=== PATIENT | male | born 1960 | race Caucasian/White ===

== ENCOUNTER 2016-05-28 15:18 | Emergency (ER) | payer MEDICARE ==
[~2016-05-28] VITALS: Ht 185.4 cm; Wt 104.3 kg
[~2016-05-28 15:18] MED LIST: SULF1TAB23 PO
--- NOTE | 2016-05-28 16:20 | ED.ADGEN ---
Past History Past Medical History: COPD, CVA, Other Past Surgical History: Other Smoking: Quit Greater Than 1 Year Alcohol Use: None Drug Use: Marijuana Adult General Chief Complaint Chief Complaint ".. I am coughing up blood..." HPI HPI Patient is a 55 year old male who presents with above history and complaints of hemoptysis. History of meth use, aortic valve repair, Coumadin use, and patient has not smoke tobacco in the past year. Patient has smoked marijuana .Patient denies any recent methamphetamine, use patient denies any chest trauma. Patient does advise he did hit his head a few days ago .Patient denies any noncompliance with his Coumadin. Patient has been coughing up specks of blood. No recent travel. No history of immune deficiencies. No specific exposures ill contacts. Does state he's had some episodes of fever. Review of Systems Review of Systems Constitutional: History of episodic fevers Eyes: Denies change in visual acuity, redness, or eye pain [] HENT: Denies nasal congestion or sore throat [] Respiratory: History of hemoptysis and wheezing Cardiovascular: No additional information not addressed in HPI [] GI: Denies abdominal pain, nausea, vomiting, bloody stools or diarrhea [] : Denies dysuria or hematuria [] Musculoskeletal: Denies back pain or joint pain [] Integument: Denies rash or skin lesions [] Neurologic: Denies headache, focal weakness or sensory changes [] Endocrine: Denies polyuria or polydipsia [] Family History Family History Noncontributory Current Medications Current Medications Current Medications Medications (Trade) Dose Ordered Sig/Coni Start Time Stop Time Status Last Admin Dose Admin Albuterol/ Ipratropium (Duoneb) 3 ml 1X ONCE 05/28/16 16:45 05/28/16 16:46 DC 05/28/16 16:45 3 ML Azithromycin (Zithromax) 500 mg 1X ONCE 05/28/16 16:45 05/28/16 16:46 DC 05/28/16 17:14 500 MG Ceftriaxone Sodium (Rocephin Im) 1 gm 1X ONCE 05/28/16 18:45 05/28/16 18:46 DC 05/28/16 18:45 1 GM Diphenhydramine HCl (Benadryl) 50 mg 1X ONCE 05/28/16 16:45 05/28/16 16:46 DC 05/28/16 17:13 50 MG Iohexol (Omnipaque 300 Mg/ml) 75 ml 1X ONCE 05/28/16 16:45 05/28/16 16:46 DC 05/28/16 16:49 75 ML Lactated Ringer's (Iv Lactated Ringers) 1,000 ml @ 1,000 mls/hr Q1H 05/28/16 16:45 05/28/16 20:23 DC 05/28/16 17:15 1,000 MLS/HR Methylprednisolone Sodium Succinate (Solu-Medrol 125mg Vial) 125 mg 1X ONCE 05/28/16 16:45 05/28/16 16:46 DC 05/28/16 17:13 125 MG Allergies Allergies Allergies Coded Allergies Type Severity Reaction Last Updated Verified No Known Drug Allergies 04/22/14 No Physical Exam Physical Exam Constitutional: Mild distress, non-toxic appearance. Large Fu-man savage medina. HENT: Normocephalic, atraumatic, bilateral external ears normal, oropharynx moist, no oral exudates, nose normal. [] Eyes: PERRLA, EOMI, conjunctiva normal, no discharge. Glasses Neck: Normal range of motion, no tenderness, supple, no stridor. [] Cardiovascular: Bradycardia Heart rate regular rhythm, aortic murmur [] Lungs & Thorax: Bilateral breath sounds equal at apexes with scattered wheezes and rhonchi in bases on auscultation [] some increased rhonchi left lower posterior snow. Old surgical scars Abdomen: Bowel sounds normal, soft, no tenderness, no masses, no pulsatile masses. [] Skin: Warm, dry, no erythema, no rash. [] Back: No tenderness, no CVA tenderness. [] Extremities: No tenderness, no cyanosis, no clubbing, ROM intact, no edema. No cording appreciated Neurologic: Alert and oriented X 3, normal motor function, normal sensory function, no focal deficits noted. [] Psychologic: Affect anxious, judgement normal, mood normal. [] Current Patient Data Vital Signs Vital Signs Date Time Temp Pulse Resp B/P Pulse Ox O2 Delivery O2 Flow Rate FiO2 05/28/16 19:00 55 20 122/73 94 Room Air 05/28/16 15:18 98.0 Lab Results Laboratory Tests Test 05/28/16 15:55 05/28/16 18:15 White Blood Count 8.2x10^3/uL (4.0-11.0) Red Blood Count 4.90x10^6/uL (4.30-5.70) Hemoglobin 14.4g/dL (13.0-17.5) Hematocrit 41.8% (39.0-53.0) Mean Corpuscular Volume 85fL (79-100) Mean Corpuscular Hemoglobin 29pg (25-35) Mean Corpuscular Hemoglobin Concent 35g/dL (31-37) Red Cell Distribution Width 13.2% (11.5-14.5) Platelet Count 222x10^3/uL (140-400) Neutrophils (%) (Auto) 69% (31-73) Lymphocytes (%) (Auto) 21% (24-48) L Monocytes (%) (Auto) 9% (0-9) Eosinophils (%) (Auto) 1% (0-3) Basophils (%) (Auto) 1% (0-3) Neutrophils # (Auto) 5.7x10^3uL (1.8-7.7) Lymphocytes # (Auto) 1.7x10^3/uL (1.0-4.8) Monocytes # (Auto) 0.7x10^3/uL (0.0-1.1) Eosinophils # (Auto) 0.1x10^3/uL (0.0-0.7) Basophils # (Auto) 0.1x10^3/uL (0.0-0.2) Prothrombin Time 31.3SEC (9.4-11.4) H Prothrombin Time INR 3.0 (0.9-1.1) H PTT 44SEC (23-33) H D-Dimer (Taylor) < 0.19mg/L (0.00-0.50) Sodium Level 143mmol/L (136-145) Potassium Level 4.1mmol/L (3.5-5.1) Chloride Level 105mmol/L (98-107) Carbon Dioxide Level 29mmol/L (21-32) Anion Gap 9 (6-14) Blood Urea Nitrogen 12mg/dL (8-26) Creatinine 1.2mg/dL (0.7-1.3) Estimated GFR (Cockcroft-Gault) 63.1 Glucose Level 122mg/dL (70-99) H Calcium Level 9.0mg/dL (8.5-10.1) Magnesium Level 1.9mg/dL (1.8-2.4) Total Bilirubin 0.9mg/dL (0.2-1.0) Direct Bilirubin 0.2mg/dL (0.0-0.2) Aspartate Amino Transferase (AST) 15U/L (15-37) Alanine Aminotransferase (ALT) 18U/L (16-63) Alkaline Phosphatase 92U/L (46-116) Creatine Kinase 66U/L (39-308) Creatine Kinase MB (Mass) < 0.5ng/mL (0.0-3.6) Creatine Kinase MB Relative Index 0.8% (0-4) Troponin I Quantitative < 0.017ng/mL (0-0.055) OW-Mjq-N-Type Natriuretic Peptide 147pg/mL (0-124) H Total Protein 7.5g/dL (6.4-8.2) Albumin 4.0g/dL (3.4-5.0) Lipase 163U/L (73-393) Urine Collection Type Unknown Urine Color Yellow Urine Clarity Clear Urine pH 7.5 Urine Specific [place] 1.015 Urine Protein Neg (NEG-TRACE) Urine Glucose (UA) Negmg/dL (NEG) Urine Ketones (Stick) Negmg/dL (NEG) Urine Blood Trace (NEG) Urine Nitrite Neg (NEG) Urine Bilirubin Neg (NEG) Urine Urobilinogen Dipstick 0.2mg/dL (0.2 mg/dL) Urine Leukocyte Esterase Neg (NEG) Urine RBC 1-2/HPF (0-2) Urine WBC 0/HPF (0-4) Urine Squamous Epithelial Cells Few/LPF Urine Bacteria 0/HPF (0-FEW) Urine Opiates Screen Neg (NEG) Urine Methadone Screen Neg (NEG) Urine Barbiturates Neg (NEG) Urine Phencyclidine Screen Neg (NEG) Urine Amphetamine/Methamphetamine Neg (NEG) Urine Benzodiazepines Screen Pos (NEG) Urine Cocaine Screen Neg (NEG) Urine Cannabinoids Screen Pos (NEG) Urine Ethyl Alcohol Neg (NEG) EKG EKG My interpretation EKG shows a sinus bradycardia 51 bpm. There is some anterior septal changes but no findings acute STEMI of contralateral changes. [] Radiology/Procedures Radiology/Procedures My Interpretation chest x-ray shows chronic COPD emphysema type changes. Does have some sternal wires. Appears to have a aortic valve. Appears have some basilar atelectasis or infiltrate particularly on the left . CT of chest shows[]L. Lower Lobe infiltrate, and bibasilar atele. No PE appreciated. See formal report Course & Med Decision Making Course & Med Decision Making Pertinent Labs and Imaging studies reviewed. (See chart for details) Patient follow-up primary care. Patient warned that the use of antibiotics may increase his INR which is currently at 3.0 would hold Coumadin tonight. Discussed with primary care addressed to further dosages of Coumadin. Patient to continue his Zithromax 250 mg day for daily for 5 days. Patient take prednisone 50 mg a day for 5 days. Pt. use Combivent 2 puffs 4 times a day with spacer. Patient encouraged not to smoke marijuana. Patient encouraged follow-up primary care. Patient return if any concerns. Patient may use Benadryl 25-50 mg 4 times a day for cough suppressant. Return if any concerns [] Final Impression Final Impression 1. Left lower lobe pneumonia [] 2. Marijuana use 3. History of COPD 4. History of aortic valve repair 5. Therapeutic INR 6. Complaints of Hemoptysis Problems: Dragon Disclaimer Dragon Disclaimer This electronic medical record was generated, in whole or in part, using a voice recognition dictation system. MAGNO CARDOZA MD May 28, 2016 16:20
[2016-05-28 16:34] LABS: BASO # 0.1 x10^3/uL (0.0-0.2); BASO % 1 % (0-3); EOS # 0.1 x10^3/uL (0.0-0.7); EOS % 1 % (0-3); HEMATOCRIT 41.8 % (39.0-53.0); HEMOGLOBIN 14.4 g/dL (13.0-17.5); LYMPH # 1.7 x10^3/uL (1.0-4.8); LYMPH % 21 % (24-48); MEAN CORPUSCULAR HEMOGLOBIN 29 pg (25-35); MEAN CORPUSCULAR HGB CONC 35 g/dL (31-37); MEAN CORPUSCULAR VOLUME 85 fL (79-100); MONO # 0.7 x10^3/uL (0.0-1.1); MONO % 9 % (0-9); NEUT # 5.7 x10^3uL (1.8-7.7); NEUT % 69 % (31-73); PLATELET COUNT 222 x10^3/uL (140-400); RED CELL DISTRIBUTION WIDTH 13.2 % (11.5-14.5); WHITE BLOOD COUNT 8.2 x10^3/uL (4.0-11.0)
--- NOTE | 2016-05-28 16:38 | EKG ---
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
[2016-05-28] MEDS ORDERED: methylPREDNISolone SOD SUCC PF 125 MG/2 ML VIAL. IV ONE (16:45)
[2016-05-28] MEDS ORDERED: IPRATRPIUM/ALBUTEROL 0.5/2.5MG 3 ML NEBU. NEB ONE (16:45)
[2016-05-28] MEDS ORDERED: IV RINGERS SOLUTION,LACTATED 1,000 ML IV SCH (16:45)
[2016-05-28] MEDS ORDERED: IOHEXOL 300 MG/ML 75 ML VIAL. IV ONE (16:45)
[2016-05-28] MEDS ORDERED: DIPHENHYDRAMINE 50 MG/ML VIAL IVP ONE (16:45)
[2016-05-28] MEDS ORDERED: AZITHROMYCIN 250 MG TABLET. PO ONE (16:45)
[2016-05-28 16:53] LABS: ALK PHOS 92 U/L (46-116); ALT (SGPT) 18 U/L (16-63); ANION GAP 9 (6-14); AST (SGOT) 15 U/L (15-37); BLOOD UREA NITROGEN 12 mg/dL (8-26); CARBON DIOXIDE 29 mmol/L (21-32); CHLORIDE 105 mmol/L (98-107); CREATINE KINASE 66 U/L (39-308); CREATININE 1.2 mg/dL (0.7-1.3); DIRECT BILIRUBIN 0.2 mg/dL (0.0-0.2); GFR 63.1; GLUCOSE 122 mg/dL (70-99); LIPASE 163 U/L (73-393); MAGNESIUM 1.9 mg/dL (1.8-2.4); POTASSIUM 4.1 mmol/L (3.5-5.1); SODIUM 143 mmol/L (136-145); TOTAL BILIRUBIN 0.9 mg/dL (0.2-1.0); TOTAL PROTEIN 7.5 g/dL (6.4-8.2)
--- NOTE | 2016-05-28 17:14 | RAD ---
PROCEDURE CT angiogram chest HISTORY Hemoptysis, short of air today. TECHNIQUE Axial images and coronal and sagittal re-formatted images are provided. Coronal maximum intensity projection re-formatted images are provided. 75 milliliters of intravenous Omnipaque 300 was administered without complication. One or more of the following individualized dose reduction techniques were utilized for this exam: 1. Automated exposure control. 2. Adjustment of the mA and/or kV according to patient's size. 3. Use of iterative reconstruction technique. COMPARISON None provided. FINDINGS Contrast bolus is satisfactory. There is no filling defect to suggest pulmonary embolism. There is minimal atheromatous disease in the thoracic aorta. The heart is not enlarged. There are coronary artery calcifications. There are median sternotomy wires and findings of aortic valve repair. There are sub centimeter mediastinal lymph nodes, short axis, which may be reactive. Central airways are patent. Ground-glass opacities which are nodular are noted in the right upper lobe. Consolidation in the left lower lobe is noted. Dependent atelectasis or scarring is noted. There are calcified granulomas. There is no pleural effusion. There are degenerative changes in the spine. IMPRESSION 1. Negative for pulmonary embolism. 2. Left lower lobe consolidation, likely pneumonia. Right upper lobe ground-glass nodules may be inflammatory. Both findings can be re-evaluated in 3 months to document stability. Electronically signed by: Cory Lawrence MD (May 28, 2016 17:13:10)
--- NOTE | 2016-05-28 18:22 | RAD ---
PROCEDURE CT head without contrast. HISTORY Recent head trauma. Headache today. Previous strokes. TECHNIQUE Noncontrast CT head was obtained. There is contrast on board from the CT angiogram chest recently performed, limits evaluation. COMPARISON April 22, 2014. FINDINGS The ventricles and sulci are within normal limits for age. Right frontal infarct is stable. There is no CT evidence of an acute infarct. There is no mass effect or midline shift. Ibarra-white differentiation is maintained. Evaluation for subtle hemorrhage is limited given IV contrast already administered in this patient. No gross intracranial hemorrhage is apparent. There is no extra-axial fluid collection. There is no depressed skull fracture. Paranasal sinuses and mastoid air cells are clear. IMPRESSION 1. Old right frontal infarct. 2. No acute intracranial findings. Electronically signed by: Cory Lawrence MD (May 28, 2016 18:20:26)
[2016-05-28] MEDS ORDERED: PRED50TA PO (18:44)
[2016-05-28] MEDS ORDERED: CEFTRIAXONE IM 1 GM VIAL. IM ONE (18:45)
[2016-05-28] MEDS ORDERED: AZIT250T PO (18:45)
[2016-05-28] MEDS ORDERED: IPRA4AER INH (18:46)
[2016-05-28 18:58] LABS: AMPHETAMINE/METHAMPHETAMINE NEG (NEG); BARBITURATES NEG (NEG); BENZODIAZEPINES POS (NEG); CANNABINOIDS POS (NEG); COCAINE NEG (NEG); METHADONE NEG (NEG); OPIATES NEG (NEG); PHENCYCLIDINE NEG (NEG)
[2016-05-28 19:00] VITALS: BP 122/73
[2016-05-28 19:12] LABS: BILIRUBIN,URINE NEG (NEG); CLARITY,URINE CLEAR; COLOR,URINE YELLOW; GLUCOSE,URINE NEG (NEG); NITRITE,URINE NEG (NEG); UROBILINOGEN,URINE 0.2 mg/dL (0.2 mg/dL)
[2016-05-28 19:13] LABS: BACTERIA,URINE 0 /HPF (0-FEW); SQUAMOUS EPITHELIAL CELL,UR FEW /LPF; WBC,URINE 0 /HPF (0-4)
--- NOTE | 2016-05-29 08:28 | RAD ---
Indication coughing up blood. Shortness of air. PA and lateral views of the chest were obtained. Comparison is made to an examination 04/22/2014. Postoperative changes are noted. A prosthetic aortic valve is noted. There is no gross congestive heart failure. There is a suggested minimal patchy infiltrate in the left lower lobe. Significant pleural fluid is not present. There is no pneumothorax. IMPRESSION: Suspect minimal patchy infiltrate in the left lower lobe. Findings may reflect pneumonia.
== END 2016-05-28 19:33 | disposition home or self-care (01) ==
LOC: ER 15:18
DX: J18.9 Pneumonia, unspecified organism (principal); R04.2 Hemoptysis; J44.9 Chronic obstructive pulmonary disease, unspecified; F12.10 Cannabis abuse, uncomplicated; R51 Headache; R79.1 Abnormal coagulation profile; F15.10 Other stimulant abuse, uncomplicated; Z86.73 Personal history of transient ischemic attack (TIA), and cerebral infarction without residual deficits; Z87.891 Personal history of nicotine dependence; Z95.2 Presence of prosthetic heart valve; Z79.01 Long term (current) use of anticoagulants
CPT/HCPCS: 36415; 70450; 71020; 71275; 80048; 80076; 80305; 81001; 82553; 83690; 83735; 83880; 84443; 84484; 85027; 85379; 85610; 85730; 87040; 93005; 94640; 96361; 96372; 96374; 96375; 99285; J0456; J0696; J1200; J2930; J7120; J7620; Q9967; G0481

== ENCOUNTER → 2016-06-05 | Outpatient (CLI) | payer MEDICARE ==
[2016-05-28 19:00] VITALS: BP 122/73
[~2016-06-05] MED LIST changes: +AZIT250T PO; +IPRA4AER INH; +PRED50TA PO
--- NOTE | 2016-06-05 12:29 | RAD ---
EXAM: Chest, 2 views. HISTORY: Pneumonia. COMPARISON: 05/28/2016. FINDINGS: Frontal and lateral views the chest are obtained. There is no infiltrate, effusion or pneumothorax. The heart is normal in size. There are findings consistent with median sternotomy and cardiac valve surgery.. IMPRESSION: No acute pulmonary finding.
== END | disposition home or self-care (01) ==
LOC: DXRADRC 12:13
PROVIDERS: ATTEND Physician Assistant
DX: Z87.01 Personal history of pneumonia (recurrent) (principal)
CPT/HCPCS: 71020

== ENCOUNTER 2016-06-30 22:37 | Inpatient (IN) | payer MEDICARE ==
[~2016-06-30] VITALS: Ht 185.4 cm; Wt 100.7 kg
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
[2016-06-30] MEDS ORDERED: IV RINGERS SOLUTION,LACTATED 1,000 ML IV SCH (22:45)
[2016-06-30] MEDS ORDERED: LORAZEPAM 2 MG/ML VIAL IV ONE ×2 (22:45→23:15)
[2016-06-30 23:07] LABS: BASO % 0 % (0-3); EOS # 0.1 x10^3/uL (0.0-0.7); EOS % 1 % (0-3); HEMOGLOBIN 14.5 g/dL (13.0-17.5); LYMPH # 1.9 x10^3/uL (1.0-4.8); LYMPH % 24 % (24-48); MEAN CORPUSCULAR HEMOGLOBIN 29 pg (25-35); MEAN CORPUSCULAR HGB CONC 33 g/dL (31-37); MEAN CORPUSCULAR VOLUME 87 fL (79-100); MONO # 0.5 x10^3/uL (0.0-1.1); MONO % 7 % (0-9); NEUT # 5.1 x10^3uL (1.8-7.7); NEUT % 67 % (31-73); PLATELET COUNT 265 x10^3/uL (140-400); RED BLOOD COUNT 5.06 x10^6/uL (4.30-5.70); RED CELL DISTRIBUTION WIDTH 13.3 % (11.5-14.5); WHITE BLOOD COUNT 7.7 x10^3/uL (4.0-11.0)
--- NOTE | 2016-06-30 23:22 | RAD ---
PROCEDURE CT head without contrast 06/30/2016. HISTORY Seizure. History of CVA. TECHNIQUE Noncontrast images were obtained. Exposure: One or more of the following individualized dose reduction techniques were utilized for this exam: 1. Automated exposure control. 2. Adjustment of the mA and/or kV according to patient size. 3. Use of iterative reconstruction technique. COMPARISON 05/28/2016. FINDINGS There is no apparent intracranial mass, hemorrhage or abnormal extra-axial fluid collection. An area of low density is again seen in the right frontal lobe and is consistent with a previous infarct. No new area of abnormal density is identified. The ventricles and basilar cisterns are normally positioned. The sinuses and mastoid air cells appear clear. IMPRESSION No apparent acute abnormality. Electronically signed by: Pato Riggins (Jun 30, 2016 23:21:12)
[2016-06-30 23:45] LABS: ALBUMIN 4.1 g/dL (3.4-5.0); CREATININE 1.2 mg/dL (0.7-1.3); DIRECT BILIRUBIN 0.2 mg/dL (0.0-0.2); GFR 62.9; POTASSIUM 4.1 mmol/L (3.5-5.1); TOTAL BILIRUBIN 0.8 mg/dL (0.2-1.0); TOTAL PROTEIN 7.6 g/dL (6.4-8.2)
[2016-06-30 23:53] LABS: BARBITURATES NEG (NEG); BENZODIAZEPINES POS (NEG); CANNABINOIDS POS (NEG); COCAINE NEG (NEG); METHADONE NEG (NEG); OPIATES NEG (NEG); PHENCYCLIDINE NEG (NEG)
[2016-06-30 23:55] LABS: AMPHETAMINE/METHAMPHETAMINE POS (NEG)
[2016-06-30 23:59] LABS: BILIRUBIN,URINE NEG (NEG); CLARITY,URINE CLEAR; COLOR,URINE YELLOW; GLUCOSE,URINE NEG (NEG); NITRITE,URINE NEG (NEG); RBC,URINE OCC /HPF (0-2); UROBILINOGEN,URINE 0.2 mg/dL (0.2 mg/dL); WBC,URINE OCC /HPF (0-4)
[2016-07-01] LABS: BACTERIA,URINE FEW /HPF (0-FEW); SQUAMOUS EPITHELIAL CELL,UR OCC /LPF
[2016-07-01] MEDS ORDERED: IV RINGERS SOLUTION,LACTATED 1,000 ML IV ONE (00:12)
[2016-07-01] MEDS ORDERED: IOHEXOL 300 MG/ML 75 ML VIAL. IV ONE (00:15)
--- NOTE | 2016-07-01 00:42 | ACF ---
Admission Criteria Forms SEIZURE Clinical Indications for Admission to Inpatient Care (Place 'X' for any and all applicable criteria): Admission is indicated for seizure and ANY ONE of the following(1)(2)(3)(4)(5): [X]I. Inpatient admission required rather than observation care (Also use Seizure: Observation Care Criteria as appropriate) because of ANY ONE of the following: [ ]a) Altered mental status that is severe or persistent [ ]b) New focal neurologic deficit that is severe or persistent [ ]c) Metabolic disorder (eg, hypoglycemia, hyponatremia) that is severe or persistent [ ]d) Recurrent seizure [ ]e) Outpatient antiseizure regimen cannot be established (eg , patient cannot tolerate medication, initiation requires inpatient care) [X]f) Need for ongoing intravenous infusion of antiseizure medication [ ]g) Cardiac arrhythmias of immediate concern [ ]h) Cerebral bleeding, hydrocephalus, or vasospasm monitoring (14) [ ]i) Increased intracranial pressure or cerebral edema monitoring (15) [ ]j) Other treatment or monitoring requiring inpatient admission [ ]II. Status epilepticus [A] or repetitive seizures not controlled with emergent treatment (6)(8) [ ]III. Brain disorder (eg, tumor, edema, and hydrocephalus) that requiring monitoring or intervention available only at inpatient level of care. [ ]IV. Brain insult (eg, severe trauma, stroke, drug toxicity, or withdrawal) that requires monitoring or intervention available only at inpatient level of care (10)(11) Extended stay beyond goal length of stay may be needed for (22) [ ]a) Complications of status epilepticus [ ]b) Refractory status epilepticus [ ]c) Etiology-specific therapy for conditions such as HOMEWORKER infection, head injury,eclampsia, severe metabolic abnormalities, and brain tumor [ ]d) Residual neurologic damage, [ ]e) Initiation of significant change to anticonvulsant treatment [ ]f) Older patients (65 years or older) [ ]g) Patient requiring intubation (eg, to protect airway) The original [employer] content created by [employer] has been revised. The portions of the content which have been revised are identified through the use of italic text or in bold, and [facility] [employer] has neither reviewed nor approved the modified material. All other unmodified content is copyright [facility] [employer]. Please see references footnoted in the original [facility] edition 2016 Admission Criteria Met?: Yes SHEA MÉNDEZ Jul 01, 2016 00:42
--- NOTE | 2016-07-01 00:52 | RAD ---
PROCEDURE CTA chest with contrast 07/01/2016. HISTORY Dyspnea and syncope. TECHNIQUE Helical thin-section images were made through the chest using an infusion of 75 milliliters Omnipaque 300. MIP reconstructions also were performed. Exposure: One or more of the following individualized dose reduction techniques were utilized for this exam: 1. Automated exposure control. 2. Adjustment of the mA and/or kV according to patient size. 3. Use of iterative reconstruction technique. COMPARISON 05/28/2016. FINDINGS Areas of atelectasis are seen posteriorly in both lungs. Patchy infiltrate is visible in the right upper lobe. The left lower lobe has cleared some since the prior exam, and small areas of infiltrate in the right upper lobe have resolved, while the current abnormality appears to be new. No other significant pulmonary parenchymal abnormality is seen. The central airways show no obstruction. No enlarged lymph nodes are seen. 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 Evaluation of the pulmonary arterial tree shows only modest opacification of the pulmonary artery branches, despite apparent appropriate technique. No abnormal filling defect is seen extending out at least to the segmental branch level. Images through the upper abdomen show no new abnormality. IMPRESSION No PE, although pulmonary artery opacification was only modest on today's exam. Fluctuating infiltrates, although overall, there has been improvement since the prior study. Electronically signed by: Pato Riggins (Jul 01, 2016 00:50:49)
[2016-07-01] MEDS ORDERED: ONDANSETRON PF 4 MG/2 ML VIAL. IV PRN (01:45)
[2016-07-01] MEDS ORDERED: LORAZEPAM 2 MG/ML VIAL IV PRN (01:45)
[2016-07-01 02:56] VITALS: BP 124/74
[2016-07-01] MEDS: LEVETIRACETAM 1,000 MG in IV NORMAL SALINE 100ML 100 ML IV SCH ×2 (03:00→09:21)
[2016-07-01] MEDS ORDERED: IV NORMAL SALINE 100ML 100 ML ONE (03:16)
[2016-07-01] MEDS ORDERED: LEVETIRACETAM 500 MG/5 ML VIAL IV ONE (03:16)
--- NOTE | 2016-07-01 05:13 | EKG ---
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
[2016-07-01 05:50] VITALS: BP 104/65
[2016-07-01] MEDS ORDERED: DEXL60CA PO (07:09)
[2016-07-01] MEDS ORDERED: HYDR25TA PO (07:09)
[2016-07-01] MEDS ORDERED: DESVENLAFAX (07:09)
[2016-07-01] MEDS ORDERED: LISI-338 PO (07:09)
[2016-07-01] MEDS ORDERED: WARF5TAB7 PO ×2 (07:09→17:11)
[2016-07-01] MEDS ORDERED: WARF2TAB7 (07:09)
--- NOTE | 2016-07-01 09:27 | RAD ---
AP portable chest radiograph 06/30/2016 Clinical History: Unexplained seizure. An AP portable erect digital radiograph of the chest was obtained. Comparison study is dated 06/05/2016. The patient is status post cardiac valve replacement. The cardiac silhouette is normal in size. The thoracic aorta is minimally tortuous. Left lower lobe atelectasis and/or infiltrate is seen which is new since the previous examination. No pneumothorax or pleural effusion is noted. The osseous structures are unchanged. Impression: Left lower lobe atelectasis and/or infiltrate.
[2016-07-01] MEDS ORDERED: HYDROXYZINE HCL 25 MG TABLET PO PRN (09:45)
[2016-07-01 10:40] VITALS: BP 113/69
[2016-07-01] MEDS: PANTOPRAZOLE 40 MG TABLET. PO SCH (11:58)
[2016-07-01] MEDS: LISINOPRIL 5 MG TABLET. PO SCH (11:58)
[2016-07-01] MEDS: IPRATRPIUM/ALBUTEROL 0.5/2.5MG 3 ML NEBU. NEB SCH ×3 (12:21→20:00)
--- NOTE | 2016-07-01 12:51 | HP ---
ADMIT DATE: 07/01/2016 REASON FOR ADMISSION: Tonic-clonic seizure. HISTORY OF PRESENT ILLNESS: This is a 56-year-old gentleman who was [place] on [address]. He admits to taking some brownies with unknown substance in it. He also took an Adderall, which did not belong to him. He "felt something coming on" and then had witnessed tonic-clonic seizure. At the scene, he was prolonged postictal. He did receive Versed by the paramedics for repeated tonic-clonic seizures during transport to the ED. He is a daily marijuana user and does use methamphetamine as well. PAST MEDICAL HISTORY: COPD. He has had 3 strokes. He has a mechanical aortic valve, requiring Coumadin, long-term use of anticoagulants, tobacco use disorder, however, states he has quit. 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 He is disabled. He was a heavy smoker and does admit to daily marijuana use, intermittent methamphetamine use. MEDICATIONS: Reviewed. The patient does not currently take prednisone, although it is listed. He is on Coumadin and other medicines are available on MAY. ALLERGIES: None. REVIEW OF SYSTEMS: The patient feels a little sleepy, otherwise really does not have any particular complaints. OBJECTIVE: VITAL SIGNS: Blood pressure 113/69, temperature 97.6, pulse 64, respirations 20, pulse ox 95% on room air. GENERAL: A 56-year-old in no acute distress. HEENT: Hearing is normal. Eyes are clear. Pupils are equal, round, reactive to light. Extraocular muscles are intact. Nose is patent. Throat is clear. NECK: Supple, without adenopathy. LUNGS: Clear to auscultation. CARDIOVASCULAR: Regular rhythm and rate with a crisp aortic valve sound. ABDOMEN: Soft, nontender. EXTREMITIES: Without edema. NEUROLOGIC: He is intact. His reflexes are brisk, I would say 3+/4. No neurological deficits were noted and follow directions without difficulty. LABORATORY DATA: Normal CBC. Normal CMP. Drug screen positive for cannabinoids, amphetamines and benzos, which he may have already gotten in the ER. Urinalysis was negative. His INR was 3.4, so that is acceptable. ASSESSMENT: 1. New onset tonic-clonic seizure, questionable etiology from drug use of Adderall and brownies with unknown substance in it. 2. History of methamphetamine use. 3. Daily marijuana use. 4. Tobacco use disorder, has quit. 5. Chronic obstructive pulmonary disease. 6. Cerebrovascular accident x 3. 7. History of pneumonia. 8. Long-term use of anticoagulants. PLAN: The patient received IV Keppra and we will wait for Dr. Dotson. TONEY PATEL DO DR: JOE/jack JOB#: [id number] / [id number]
[2016-07-01] MEDS ORDERED: NON FORMULARY ITEM (Ipratropium/Albuterol Sulfate (Combivent Respimat Inhal) 2 PUFF) INH SCH (13:00)
[2016-07-01 15:14] VITALS: BP 107/69
[2016-07-01] MEDS ORDERED: WARFARIN 5 MG TABLET. PO SCH (16:00)
[2016-07-01] MEDS ORDERED: WARFARIN 2 MG TABLET. PO SCH (16:00)
[2016-07-01 18:58] VITALS: BP 104/60
[2016-07-01] MEDS: LEVETIRACETAM 500 MG TABLET PO SCH (21:07)
--- NOTE | 2016-07-01 23:05 | CONS ---
DATE OF CONSULTATION: 07/01/2016 NEUROLOGY CONSULT REFERRING PHYSICIAN: Dr. Atkins. REASON FOR CONSULTATION: New onset of seizure. HISTORY OF PRESENT ILLNESS: This is a 56-year-old disabled male who was admitted to Emergency Room last night after he presented with a new onset of seizure described by paramedics as generalized tonic clonic seizures. The ER report stated that the patient did have 2 witnessed generalized tonic-clonic seizures witnessed by paramedics. The seizures followed by prolonged postictal confusions. The patient did not recall the event. He did not have any tongue biting, bowel, or bladder incontinence. The patient denies any head injuries or falls. Apparently, he [place] when he was sitting and then all of a sudden, he felt strange in his body and then he lost consciousness. According to the patient, he was eating a brownie with unknown substance in it. He was also given a pill of Adderall. The patient is supposed to abuse amphetamine for several years along with smoking marijuana on daily basis. In the Emergency Room, the patient was in postictal status. He was given Keppra IV 1000 mg. Since admission, he has not had any recurrent seizures. The patient denies any other complaints; however, he stated he has been slow "since 2004 after he had 3 strokes in the same year, which did not result any focal neurological deficit, but affecting his mental status and higher cognition function. Initial nonenhanced head CT scan revealed no acute intracranial process. PAST MEDICAL HISTORY: Significant for history of stroke x 3 as described above, aortic valve replacement in 2004. SOCIAL HISTORY: The patient is single. He smokes tobacco and marijuana. He denies alcohol drinking, but he has been abusing amphetamine. 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 FAMILY HISTORY: Noncontributory. CURRENT MEDICATIONS: Warfarin 5 mg alternating with 2 mg, lisinopril 5 mg daily, Protonix 40 mg daily, Atarax 25 mg q. 6 hours p.r.n. for agitation, albuterol inhaler, levothyroxine q. 12 hours, lorazepam 2 mg p.r.n. and Zofran 4 mg q. 4 hours p.r.n. IV. ALLERGIES: No known drug allergies. REVIEW OF SYSTEMS: A 10-point review of systems was performed and consistent with history of present illness. However, the patient denies any chest pain, palpitations, or any other new medical or neurological complaints. OBJECTIVE: GENERAL APPEARANCE: Obese white male, not in acute distress. He weighs 230 pounds. VITAL SIGNS: Blood pressure 113/69, respiratory rate 20, pulse is 64, temperature 97.6, oxygen saturation 95% on room air. HEENT: Normocephalic, atraumatic, otherwise unremarkable. NECK: Supple. Negative for carotid bruit, lymphadenopathy, JVD, or thyromegaly. LUNGS: Clear, but he has diminished breath sounds bilaterally. CARDIOVASCULAR: Regular rate and rhythm, normal S1, S2. There is 2/6 systolic murmur. ABDOMEN: Soft. Bowel sounds positive. EXTREMITIES: Negative for cyanosis, clubbing, or pitting edema. NEUROLOGICAL: 1. MENTAL STATUS: The patient is alert and oriented x 3. The speech is fluent. There is no language dysfunction. Memory, judgment, and abstract thinking are fair. The patient denies hallucination or delusion. 2. CRANIAL NERVES: Visual snow are full. The pupils are reactive to light and accommodation. The extraocular movements are intact. There is no nystagmus. There is no facial motor or sensory deficit. Hearing is intact bilaterally. The palate is elevated symmetrically. Sternocleidomastoid muscles are powerful bilaterally. The patient shrugs his shoulders symmetrically and protrudes his tongue in the midline without fasciculation or atrophy. 3. MOTOR EXAMINATION: No focal muscle bulk was seen. The tone is normal. The strength is 5/5 throughout. Sensory examination revealed normal pinprick, light touch, vibratory and position senses. Deep tendon reflexes are symmetric and active without pathologic responses. Gait: The stance is steady. The patient has normal cazeqm-tg-jwgx and vevv-hd-molu rapid alternative movements and rapid repetitive movements. LABORATORY DATA: CBC revealed white blood cells of 7.7 thousand, hemoglobin 14.5, hematocrit 44, platelet count 265,000. Chemistry revealed sodium 139, potassium 4.1, chloride 101, CO2 29. BUN is 16, creatinine 1.2, glucose 145, calcium 9, magnesium 2. Liver enzymes reveal low AST and ALT and troponin level less than 0.017. TSH is normal at 0.621. Urinalysis negative for urinary tract infections. Urine drug screen is positive for amphetamine, benzodiazepine, marijuana. IMPRESSION: 1. New onset of generalized tonic-clonic seizure - grand mal, etiology uncertain, rule out central nervous system pathology versus substance abuse withdrawal. 2. Multiple medical problems include status post aortic valve replacement, substance abuse, chronic obstructive pulmonary disease, history of stroke. RECOMMENDATIONS: 1. The patient probably is not a candidate for brain MRI. 2. Electroencephalogram. 3. Keppra 500 mg b.i.d. 4. Continue with current management initiated by Dr. Atkins. M Roni CLINTON MD DR: STUART/jack JOB#: [id number] / [id number]
[2016-07-02 04:54] VITALS: BP 97/59
[2016-07-02] MEDS: IPRATRPIUM/ALBUTEROL 0.5/2.5MG 3 ML NEBU. NEB SCH ×4 (05:13→19:57)
[2016-07-02 07:08] LABS: BASO % 0 % (0-3); EOS # 0.1 x10^3/uL (0.0-0.7); EOS % 2 % (0-3); HEMATOCRIT 42.5 % (39.0-53.0); LYMPH # 1.9 x10^3/uL (1.0-4.8); LYMPH % 37 % (24-48); MEAN CORPUSCULAR HEMOGLOBIN 29 pg (25-35); MEAN CORPUSCULAR HGB CONC 33 g/dL (31-37); MEAN CORPUSCULAR VOLUME 87 fL (79-100); MONO # 0.4 x10^3/uL (0.0-1.1); MONO % 8 % (0-9); NEUT # 2.8 x10^3uL (1.8-7.7); NEUT % 53 % (31-73); PLATELET COUNT 170 x10^3/uL (140-400); RED BLOOD COUNT 4.88 x10^6/uL (4.30-5.70); RED CELL DISTRIBUTION WIDTH 13.7 % (11.5-14.5); WHITE BLOOD COUNT 5.2 x10^3/uL (4.0-11.0)
[2016-07-02 07:21] LABS: ALBUMIN 3.5 g/dL (3.4-5.0); ALBUMIN/GLOBULIN RATIO 1.2 (1.0-1.7); CALCIUM 8.6 mg/dL (8.5-10.1); GFR 77.6; POTASSIUM 3.9 mmol/L (3.5-5.1); TOTAL BILIRUBIN 0.5 mg/dL (0.2-1.0); TOTAL PROTEIN 6.5 g/dL (6.4-8.2)
[2016-07-02 08:18] VITALS: BP 127/83
[2016-07-02] MEDS: LISINOPRIL 5 MG TABLET. PO SCH (10:04)
[2016-07-02] MEDS: LEVETIRACETAM 500 MG TABLET PO SCH ×2 (10:04→20:11)
[2016-07-02] MEDS: PANTOPRAZOLE 40 MG TABLET. PO SCH (10:04)
[2016-07-02 10:56] VITALS: BP 124/80
--- NOTE | 2016-07-02 11:42 | PN ---
DATE: 07/02/2016 SUBJECTIVE: The patient denies any new medical neurological complaints. He has not had any seizures since admission. OBJECTIVE: GENERAL: Well-developed, well-nourished white male, not in acute distress. VITAL SIGNS: Blood pressure 127/83, respiratory rate 20, pulse is 77 and regular, temperature 97.7, oxygen saturation 95% on room air. HEENT: Normocephalic, atraumatic, otherwise unremarkable. NECK: Supple. Negative for carotid bruit, lymphadenopathy or thyromegaly. LUNGS: Clear to A and P. CARDIOVASCULAR: Regular rate and rhythm, normal S1, S2. There is no S3, S4 or murmur. ABDOMEN: Soft. Bowel sounds positive. EXTREMITIES: Negative for cyanosis, clubbing or pitting edema. NEUROLOGICAL EXAM: Mental Status: The patient is alert and oriented x 3. Speech is fluent. There is no language dysfunction. Memory is intact. Judgment and abstract thinking are normal. Cranial nerves are intact. Motor Examination: No focal muscle bulk was seen. The tone is normal. The strength is 5/5 throughout. Sensory examination revealed normal pinprick, light touch over vibratory and position senses. Deep tendon reflexes are symmetric and active without pathology responses. Gait and coordination is normal. LABORATORY DATA: CBC revealed white blood cells of 5.2 thousand, hemoglobin 14, hematocrit 42.5, platelet count 178,000. Chemistry revealed sodium 143, potassium 3.9, chloride 107, CO2 30, BUN 9, creatinine 1, glucose 129, calcium 8.6. Coagulation: PT is 36.3 and INR 2.6. IMPRESSION: 1. New onset of a seizure, described as generalized tonic-clonic seizures, etiology uncertain, possible substance abuse or withdrawal. 2. Multiple medical problems include post-aortic valve replacement, chronic obstructive pulmonary disease and substance abuse, amphetamine. RECOMMENDATIONS: 1.Continue with current anticonvulsant, Keppra 500 mg b.i.d., and continue with current care initiated by Dr. Atkins. 2.Await for an EEG or electroencephalogram. M Roni CLINTON MD DR: STUART/jack JOB#: [id number] / [id number]
[2016-07-02 15:13] VITALS: BP 118/67
[2016-07-02] MEDS: WARFARIN 10 MG TABLET. PO SCH (16:39)
--- NOTE | 2016-07-02 19:02 | PN ---
DATE: 07/02/2016 SUBJECTIVE: The patient is resting, slightly propped up, sleeping comfortably, is arousable and on questioning him, he denied any complaint. In particular, denied any tingling or numbness, denied any weakness and the nursing staff stated he has no further episodes of tonic-clonic seizures. OBJECTIVE: GENERAL: On examining him, he looked well and was clearly in no apparent respiratory distress. No pallor, jaundice, cyanosis, or thyromegaly. No jugular venous distention. No limb edema. VITAL SIGNS: His heart rate was 61, blood pressure was 124/80, temperature was 97.7, respiratory rate 20 and oxygen saturation was 96% on room air. HEAD, EYES, EARS, NOSE AND THROAT: Showed normocephalic, atraumatic. NECK: Supple. HEART: Showed normal first and second heart sounds. No gallop, rub or murmur. CHEST: Clear to auscultation. No crepitation or rhonchi. ABDOMEN: Distended, soft, nontender. No guarding or rigidity. No organomegaly. All hernial orifices intact. Bowel sounds normal. NEUROLOGIC: He was awake, alert, responding appropriately. Cranial nerves are intact. He moves extremities without difficulty, ambulates without assistance or assistive devices. His intake over the last 24 hours was 940, no output was recorded. LABORATORY DATA: As of this morning showed a white cell count 5200, hemoglobin 14, hematocrit 42, MCV 87 and platelet count of 170,000. His chemistry showed a serum sodium 143, potassium 3.9, chloride 107, bicarbonate 30, anion gap of 6, BUN 9, creatinine 1. Estimated GFR was 77.6 mL per minute. His glucose was 129, calcium was 8.6. Total bilirubin, AST, ALT, alkaline phosphatase were normal. His total protein was 6.5, albumin 3.5. TSH was 0.621. His prothrombin time is 26.3, INR of 2.6. Urinalysis was unremarkable; however, urine toxicology screen was positive for amphetamine, methamphetamine, benzodiazepine as well as cannabinoids. ASSESSMENT: 1. New onset of generalized tonic-tonic seizures. The patient claimed that he has had 3 strokes diagnosed when he was in [place], although did not have any neurological deficits. He stated he is slow since 2004 as he had strokes but affected mainly his mental status and higher cognition function. 2. 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 He is also known to have chronic obstructive pulmonary disease. PLAN: To continue with Keppra twice a day, continue with all his other medications. His INR should be between 2.5 to 3.5 and I will increase his Coumadin today to 10 mg and check his labs again tomorrow and await the EEG that was scheduled for tomorrow. ANJEL CORTEZ MD DR: KARY/jack JOB#: [id number] / [id number]
[2016-07-02 20:00] VITALS: BP 134/79
[2016-07-03 05:14] VITALS: BP 133/77
[2016-07-03] MEDS: IPRATRPIUM/ALBUTEROL 0.5/2.5MG 3 ML NEBU. NEB SCH ×3 (06:17→15:40)
[2016-07-03 07:05] LABS: CALCIUM 8.8 mg/dL (8.5-10.1); CREATININE 1.1 mg/dL (0.7-1.3); GFR 69.5; POTASSIUM 3.7 mmol/L (3.5-5.1)
[2016-07-03] MEDS: PANTOPRAZOLE 40 MG TABLET. PO SCH (08:27)
[2016-07-03] MEDS: LEVETIRACETAM 500 MG TABLET PO SCH (08:28)
[2016-07-03] MEDS: LISINOPRIL 5 MG TABLET. PO SCH (08:28)
[2016-07-03 11:16] VITALS: BP 138/79
[2016-07-03 14:45] VITALS: BP 131/75
[2016-07-03] MEDS: WARFARIN 10 MG TABLET. PO SCH (16:03)
[2016-07-03] MEDS ORDERED: LEVE500T56 PO (17:23)
--- NOTE | 2016-07-03 22:04 | EEG ---
DATE OF SERVICE: Electroencephalogram This digital 18-channel EEG was performed using the standard international 10-20 electrode placement system. Photic stimulation and hyperventilation were used as activation procedures. The patient was not sleep deprived. The patient was not sedated. The EEG obtained with the patient in the awake state characterized by posterior dominant rhythm of 8-9 cycles per second with an amplitude of 25-35 microvolts. It was bilaterally symmetric and attenuated with eye opening. The patient achieved stage 1 and early stage 2 sleep characterized by slowing of the posterior dominant rhythm and attenuation of the amplitudes. Vertex sharp waves, K-complexes and symmetric sleep spindles at frequency of 15 cycles per second were also seen during the drowsy records. Photic stimulation produced no driving responses and hyperventilation indicated no changes in the background activities. The background showed burst of generalized slowing of theta activities at frequency of 7 cycles per second seen in drowsy records. This is a normal waking and drowsy EEG. No epileptiform activities were seen. The lack of epileptiform discharges does not always rule out seizure, therefore clinical correlation is advised. M Roni CLINTON MD DR: STUART/jack JOB#: [id number] / [id number]
--- NOTE | 2016-07-04 | DS ---
DATE OF DISCHARGE: 07/03/2016 HOSPITAL COURSE: The patient is a 56-year-old male patient who was originally admitted on 07/01/2016 with new onset tonic-clonic seizures. He apparently had a witnessed tonic-clonic seizure and at the scene he was in prolonged postictal state. He did receive Versed by the paramedics for repeated tonic-clonic seizures during transport to ED. He has daily marijuana use and does use methamphetamine as well. He apparently had had 3 strokes before. He has a mechanical aortic valve requiring Coumadin for long-term use of anticoagulation and basically he was investigated, has had CT scan of the head, which showed no apparent acute abnormality. He has also CT scan of the chest with PE protocol, which showed no pulmonary embolism, although pulmonary artery ____ infiltrates, although overall, there has been improvement since the prior study. He had had an EEG which confirmed that he has epileptic activity, although I have not seen the actual report and this is available report from one of the nursing staff. Dr. Dotson recommended that the patient can be discharged on Keppra 500 mg twice a day, to follow up with him in 2 weeks' time and he should not drive for 6 months in [place] and 1 year in [facility]. PHYSICAL EXAMINATION: GENERAL: When I examined him today, he looked well, although he was somewhat upset because of the restriction on driving. There was no pallor, jaundice, cyanosis, or thyromegaly. No jugular venous distension. No limb edema. VITAL SIGNS: His heart rate was 52, blood pressure 131/75, temperature was 97.7, respiratory rate 20 and oxygen saturation was 99%. HEAD, EYES, EARS, NOSE AND THROAT: Showed normocephalic, atraumatic. NECK: Supple. HEART: Showed normal first and second heart sounds with no gallop, rub or murmur. The mechanical valve sounds are easily audible. CHEST: Showed central trachea, equal bilateral expansion, air entry, vesicular sounds. No crepitation or rhonchi. ABDOMEN: Distended, soft, nontender. NEUROLOGIC: He is awake, alert, responding appropriately. Cranial nerves are intact. EXTREMITIES: He moves extremities without difficulty. He ambulates without assistance or assistive devices. LABORATORY DATA: His lab work this morning showed a serum sodium 144, potassium 3.7, chloride 107, bicarbonate 30, anion gap of 7, BUN 6, creatinine 1.1, estimated GFR was 69 mL per minute. His glucose 123, calcium was 8.8. Total bilirubin, AST, ALT, alkaline phosphatase were normal. Total protein 6.5, albumin was 3.5. TSH was 0.621. His white cell count was 5200, hemoglobin 14, hematocrit 42, MCV 87 and platelet count of 170,000. His prothrombin time this morning was 21.4, INR of 2.1. DISCHARGE MEDICATIONS: The patient was discharged home to continue on Keppra 500 mg twice a day, Dexilant 60 mg once a day, hydroxyzine 25 mg twice a day, ipratropium bromide, albuterol inhaler 2 puffs 4 times a day, lisinopril 5 mg once a day, prednisone 50 mg daily, warfarin 2 mg daily, warfarin 5 mg, he apparently takes a total of 11 mg alternating with 10 and he is on desvenlafaxine, although the dose is not very clear to me. FINAL DISCHARGE DIAGNOSES: New onset tonic-clonic seizures possibly secondary to previous cerebrovascular accidents and/or drug abuse of Adderall and brownies, history of methamphetamine use disorder, daily marijuana use, tobacco use disorder, has chronic obstructive pulmonary disease, cerebrovascular accident x 3, history of pneumonia, long-term use of anticoagulation, he has aortic valve replacement with a prosthetic valve, obviously new onset tonic-clonic seizure. The patient should follow with Dr. Dotson in 2 weeks' time and should avoid driving for 6 months in [facility] and 1 year in [facility]. ANJEL CORTEZ MD DR: KARY/jack JOB#: [id number] / [id number]
--- NOTE | 2016-07-04 01:41 | PN ---
DATE: 07/03/2016 SUBJECTIVE: The patient denies any new medical neurologic complaints. He has had any seizure since admission. OBJECTIVE: GENERAL: Obese white male in no acute distress. VITAL SIGNS: Blood pressure 153/77, respiratory rate 18, pulse is 59, oxygen saturation 95% on room air. HEENT: Normocephalic, atraumatic otherwise unremarkable. NECK: Supple. Negative for carotid bruit, lymphadenopathy or thyromegaly. LUNGS: Clear to A and P. CARDIOVASCULAR: Regular rate and rhythm, normal S1, S2. There is no S3, S4, or murmur. ABDOMEN: Soft. Bowel sounds positive. EXTREMITIES: Negative for cyanosis, clubbing, or edema. NEUROLOGIC: Normal mental status and intact cranial nerves. There is no focal, motor, or sensory deficit. Deep tendon reflexes are symmetric and active without pathology responses. Gait and coordination are normal. IMPRESSION: 1. New onset of seizure activities and certainly rule out substance abuse withdrawal. 2. Multiple medical problems includes COPD, status post aortic valve replacement, and substance abuse amphetamine. RECOMMENDATION: 1. Await for EEG. 2. Continue with current pain management and medications initiated by Dr. Atkins/Dr. Marshall. RAVINDER MCPHERSON MD DR: MILADIS/jack JOB#: [id number] / [id number]
== END 2016-07-03 18:20 | disposition home or self-care (01) | DRG 101 ==
LOC: ER 22:37 → 1 SOUTH 07-01 01:46
PROVIDERS: ADMIT Family Medicine; ATTEND Family Medicine
DX: G40.409 Other generalized epilepsy and epileptic syndromes, not intractable, without status epilepticus (principal); F12.90 Cannabis use, unspecified, uncomplicated; F17.200 Nicotine dependence, unspecified, uncomplicated; F15.10 Other stimulant abuse, uncomplicated; J44.9 Chronic obstructive pulmonary disease, unspecified; Z87.01 Personal history of pneumonia (recurrent); Z86.73 Personal history of transient ischemic attack (TIA), and cerebral infarction without residual deficits; Z79.01 Long term (current) use of anticoagulants; Z79.899 Other long term (current) drug therapy; Z95.2 Presence of prosthetic heart valve; F12.10 Cannabis abuse, uncomplicated
CPT/HCPCS: 36415; 70450; 71010; 71275; 80048; 80053; 80076; 81001; 82553; 83690; 83735; 83880; 84443; 84484; 85027; 85379; 85610; 85730; 87040; 93005; 94640; 96361; 96374; 96376; G0480; G0481; J1953; J2060; J7120; J7620; Q9967; 99285-25

== ENCOUNTER → 2017-04-29 | Outpatient (CLI) | payer MEDICARE ==
[~2017-04-29] MED LIST changes: +DESVENLAFAX; +DEXL60CA2 PO; +HYDR25TA PO; +LEVE500T56 PO; +LISI-338 PO; +WARF-31 PO; +WARF2TAB7
== END | disposition home or self-care (01) ==
LOC: LAB 08:39
PROVIDERS: ATTEND Physician Assistant
DX: R73.01 Impaired fasting glucose (principal)
CPT/HCPCS: 36415

== ENCOUNTER → 2017-06-27 | Outpatient (CLI) | payer MEDICARE ==
--- NOTE | 2017-06-27 15:38 | RAD ---
2 Views of the Chest 06/27/2017 2:00 AM Indication: COUGH Comparison: Chest radiograph June 30, 2016 Findings: There is no focal consolidation or infiltrate identified. There is no effusion or pneumothorax. Prior median sternotomy noted. Heart size normal. Valvular prosthesis noted. No osseous abnormality is identified. Impression: No evidence of acute cardiopulmonary process.
== END | disposition home or self-care (01) ==
LOC: PMG 15:10
PROVIDERS: ATTEND Physician Assistant
DX: R05 Cough (principal); F17.210 Nicotine dependence, cigarettes, uncomplicated; F12.10 Cannabis abuse, uncomplicated; Z72.89 Other problems related to lifestyle; Z79.01 Long term (current) use of anticoagulants
CPT/HCPCS: 71046

== ENCOUNTER → 2018-08-28 | Outpatient (CLI) | payer MEDICARE ==
[~2018-08-28] MED LIST changes: -WARF2TAB7; +WARF2TAB96
--- NOTE | 2018-08-28 16:12 | RAD ---
Right calcaneus 2 views. HISTORY: Pain, fell off a ladder one month ago 2 views were taken of the right calcaneus. There is mild spurring at the plantar calcaneus which is chronic. On the angled view there is a small chip or avulsion off the medial aspect of the calcaneus distally. IMPRESSION: 1. Small avulsion or chip fracture medial calcaneus Electronically signed by: Laron Gonzalez MD (08/28/2018 4:09 PM) [facility]
== END | disposition home or self-care (01) ==
LOC: DXRAD 15:10
PROVIDERS: ATTEND Physician Assistant
DX: M77.31 Calcaneal spur, right foot (principal); W11.XXXA Fall on and from ladder, initial encounter
CPT/HCPCS: 73650

== ENCOUNTER → 2019-01-15 | Outpatient (CLI) | payer MEDICARE ==
[2019-01-15 14:30] LABS: BASO % 0 % (0-3); EOS % 1 % (0-3); HEMATOCRIT 44.1 % (39.0-53.0); HEMOGLOBIN 15.2 g/dL (13.0-17.5); LYMPH # 2.1 x10^3/uL (1.0-4.8); LYMPH % 27 % (24-48); MEAN CORPUSCULAR HEMOGLOBIN 30 pg (25-35); MEAN CORPUSCULAR HGB CONC 34 g/dL (31-37); MEAN CORPUSCULAR VOLUME 88 fL (79-100); MONO # 0.7 x10^3/uL (0.0-1.1); MONO % 9 % (0-9); NEUT % 63 % (31-73); PLATELET COUNT 203 x10^3/uL (140-400); RED BLOOD COUNT 5.03 x10^6/uL (4.30-5.70); RED CELL DISTRIBUTION WIDTH 13.1 % (11.5-14.5); WHITE BLOOD COUNT 7.9 x10^3/uL (4.0-11.0)
[2019-01-15 14:32] LABS: ALBUMIN 4.1 g/dL (3.4-5.0); ALBUMIN/GLOBULIN RATIO 1.2 (1.0-1.7); CREATININE 0.9 mg/dL (0.7-1.3); POTASSIUM 4.1 mmol/L (3.5-5.1); TOTAL PROTEIN 7.5 g/dL (6.4-8.2)
[2019-01-15 15:47] LABS: BACTERIA,URINE 0 /HPF (0-FEW); BILIRUBIN,URINE NEG (NEG); CLARITY,URINE CLEAR; COLOR,URINE YELLOW; GLUCOSE,URINE NEG (NEG); NITRITE,URINE NEG (NEG); UROBILINOGEN,URINE 0.2 mg/dL (0.2 mg/dL); WBC,URINE OCC /HPF (0-4)
[2019-01-16 06:07] LABS: HEMOGLOBIN A1C 6.7 % (4.8-5.6)
[2019-01-16 20:39] LABS: FREE T4 0.93 ng/dL (0.76-1.46)
[2019-01-16 21:25] LABS: THYROID STIM HORMONE (TSH) 1.493 uIU/mL (0.358-3.740)
== END | disposition home or self-care (01) ==
LOC: LAB 12:08
PROVIDERS: ATTEND Physician Assistant
DX: Z12.5 Encounter for screening for malignant neoplasm of prostate (principal); E11.9 Type 2 diabetes mellitus without complications; E78.5 Hyperlipidemia, unspecified; R39.15 Urgency of urination; Z95.4 Presence of other heart-valve replacement
CPT/HCPCS: 36415; 80053; 80061; 81001; 82043; 83036; 84439; 84443; 85025; G0103

== ENCOUNTER 2019-05-26 18:26 | Emergency (ER) | payer MEDICARE ==
[~2019-05-26] VITALS: Ht 185.4 cm; Wt 103.4 kg
--- NOTE | 2019-05-26 18:41 | PHYS DOC ---
Past History Past Medical History: COPD, CVA, Pneumonia, Other Past Surgical History: Other Past Surgical History aortic replacement Smoking: Cigarettes, Greater than 1 pack/day, Quit Greater Than 1 Year Alcohol Use: Occasionally Drug Use: Marijuana, Methamphetamine Adult General Chief Complaint Chief Complaint: COUGH.." It feels like I came down with a bug...in last 24 hrs... feels like fever.. and a cough....sore throat..." HPI HPI Patient is a 58 year old male who presents with above hx and complaints of nonproductive cough, malaise, subjective fever, sore throat, nasal congestion, cephalgia, myalgia, and arthralgia. Patient is anticoagulate for aortic valve replacement. Follows with Dr. Altamirano. No recent travel or specific ill contacts, But is exposed to the public working at [employer]. Patient has been ill in the last 24 hours. Patient quit smoking 10 years ago. No history of travel recently outside of [facility]. Follows with Pascual Altamirano. Pt. reports compliance with his anticoagulation. Review of Systems Review of Systems Constitutional: Subjective hx fever or chills [] Eyes: Denies change in visual acuity, redness, or eye pain [] HENT: Complaints of nasal congestion and sore throat [] Respiratory: Complaints of non- productive cough and some wheezing. Cardiovascular: No additional information not addressed in HPI [] GI: Denies abdominal pain, nausea, vomiting, bloody stools or diarrhea [] : Denies dysuria or hematuria [] Musculoskeletal: Complaints of generalized myalgia, arthralgia and malaise. Integument: Denies rash or skin lesions [] Neurologic: Denies headache, focal weakness or sensory changes [] Endocrine: Denies polyuria or polydipsia [] All other systems were reviewed and found to be within normal limits, except as documented in this note. Family History Family History Noncontributory to presentation Current Medications Current Medications See nursing for home medications Allergies Allergies Allergies Coded Allergies Type Severity Reaction Last Updated Verified No Known Drug Allergies 04/22/14 No Physical Exam Physical Exam Constitutional: Moderately acute distress, non-toxic appearance. [] HENT: Normocephalic, atraumatic, bilateral external ears normal, oropharynx moist, injected pharynx, no oral exudates, nose turbinates and clear rhinorrhea Eyes: PERRLA, EOMI, conjunctiva normal, no discharge. [] Neck: Normal range of motion, no tenderness, supple, no stridor. [] Cardiovascular:Heart rate regular rhythm, aortic click Lungs & Thorax: Bilateral breath sounds equal apex with scattered wheezes on auscultation []midline surgical scar Abdomen: Bowel sounds normal, soft, no tenderness, no masses, no pulsatile masses. [] Skin: Warm, dry, no erythema, no rash. [] Back: No tenderness, no CVA tenderness. [] Extremities: No tenderness, no cyanosis, no clubbing, ROM intact, no edema. [] Neurologic: Alert and oriented X 3, normal motor function, normal sensory function, no focal deficits noted. [] Psychologic: Affect anxious, judgement normal, mood normal. [] EKG EKG [] Radiology/Procedures Radiology/Procedures [] Course & Med Decision Making Course & Med Decision Making Pertinent Labs and Imaging studies reviewed. (See chart for details) Get adequate rest. Take Tylenol or ibuprofen for discomfort. Caution use of Ibuprofen with his anticoagulation meds . Do not work if you have a documented fever. Push fluids. Use MDI 2 puffs 4 times a day. Follow-up primary care. Return if any concerns. Use Benadryl 50 mg up 4 times a day for nasal congestion and cough. Impression; 1. Viral Syndrome 2. Bronchitis [] Dragon Disclaimer Dragon Disclaimer This electronic medical record was generated, in whole or in part, using a voice recognition dictation system. Departure Departure: Disposition: 01 HOME/RESIDENCE PRIOR TO ADM Condition: STABLE Referrals: JAMEY ALTAMIRANO (PCP) Dragon Disclaimer This chart was dictated in whole or in part using Voice Recognition software in a busy, high-work load, and often noisy Emergency Department environment. It may contain unintended and wholly unrecognized errors or omissions. Dragon Disclaimer This chart was dictated in whole or in part using Voice Recognition software in a busy, high-work load, and often noisy Emergency Department environment. It may contain unintended and wholly unrecognized errors or omissions. MAGNO CARDOZA MD May 26, 2019 18:41
[2019-05-26] MEDS ORDERED: predniSONE 10 MG TABLET PO ONE (18:45)
[2019-05-26] MEDS ORDERED: ALBUTEROL SULFATE 8GM INHALER. INH ONE (18:45)
[2019-05-26 19:30] LABS: INFLUENZA A PATIENT NEGATIVE (NEGATIVE); INFLUENZA B PATIENT NEGATIVE (NEGATIVE)
[2019-05-26 19:59] VITALS: BP 119/82
== END 2019-05-26 20:00 | disposition home or self-care (01) ==
LOC: ER 18:26
DX: B34.9 Viral infection, unspecified (principal); J44.9 Chronic obstructive pulmonary disease, unspecified; Z86.73 Personal history of transient ischemic attack (TIA), and cerebral infarction without residual deficits; Z87.891 Personal history of nicotine dependence
CPT/HCPCS: 87070; 87804; 87880; 94640; 99283; J7512; J7613; 94664